=== PATIENT | male | born 1980 | race Caucasian/White ===

== ENCOUNTER 2017-01-14 20:45 | Emergency (ER) | payer OTHER ==
[~2017-01-14] VITALS: Ht 182.9 cm; Wt 8.2 kg
[2017-01-14 20:46] VITALS: BP 153/104; RESP 16; O2SAT 99
[2017-01-14 21:40] LABS: BASOPHILS % (AUTO) 0.6 % (0-3); EOSINOPHILS % (AUTO) 2.9 % (0-5); MONOCYTES % (AUTO) 8.9 % (4-12); Mean Corpuscular Hemoglobin 30.1 pg (27.0-35.0); Mean Corpuscular Volume 85.6 fL (81-100); NEUTROPHILS % (AUTO) 51.7 % (40-74); Platelet Count 244 bil/L (150-400)
[2017-01-14 22:01] LABS: TROPONIN T 0.01 ug/L (0.0-0.011)
[2017-01-14 22:13] LABS: Magnesium 2.2 mg/dL (1.6-2.6)
--- NOTE | 2017-01-14 23:51 | ED.REPORT ---
HPI-Chest Pain Under 40 Date of Service January 14, 2017 ED Provider: Gordy Turner MD Pt is a 36 y.o. male with a hx of HTN who presents to the ED c/o stabbing chest pain onset 2 days ago. Pt states that he had chest pain two days ago that caused him to double over in pain lasting 30 seconds and now he has intermittent mild chest pain. He denies cough, nausea, vomiting, and diaphoresis. Nursing Notes Stated Complaint: CHEST PAIN Chief Complaint: Chest Pain Nursing Notes Reviewed: Yes Allergies: Coded Allergies: No Known Allergies (Unverified Allergy, Unknown, 01/14/17) Scheduled Diltiazem ER (Diltiazem ER) 120 Mg Cap.er.24h 120 MG PO DAILY General Time Seen by MD: 23:51 Chief Complaint Chest pain Hx Obtained From: Patient Arrived By: Walk-in Sudden in Onset?: Yes Onset Occurred: 2 days ago Symptom Duration: Intermittent Location: : Substernal Quality: Painful, Stabbing Severity: Current: Mild Severity: Maximum: Severe Past Medical History Past Medical History Reports: Hypertension Past Surgical History None reported Smoking History Never Smoker Social History Drug Use: Denies drug use Ambulatory Status Independent Review of Systems Respiratory: Denies: Non-productive cough Cardiovascular: Reports: Chest pain GI: Denies: Nausea, Vomiting Skin: Denies Diaphoresis Complete sys rev & neg: except as marked. Physical Exam Initial Vital Signs Vital Signs (First) Date Time Temp Pulse Resp B/P Pulse Ox O2 Delivery O2 Flow Rate FiO2 01/14/17 20:46 37.1 16 153/104 99 Initial VS: Reviewed Head / Eyes: Atraumatic, Normocephalic Extremities: Vascular intact, Neuro intact Skin: Warm, Dry, No cyanosis Neurologic: Alert, Oriented, Nonfocal Psychiatric: Mood/affect normal, Behavior normal, Normal thought content General/Constitutional: Awake, Alert, No acute distress, Well appearing, Well developed, Well hydrated, Well nourished, Not toxic appearing Respiratory / Chest: Atraumatic, Breath sounds NL, Breath sounds = bilat, No respiratory distress Cardiovascular: Heart rate NL, Regular rhythm, Heart sounds NL, Peripheral circulation NL Abdomen: Atraumatic, Soft, Non-tender, No distention Interpretation & Diagnostics Lab Results Interpretation Result Diagram: 01/14/17213201/14/172132 Test 01/14/17 21:33 01/14/17 23:43 White Blood Count 8.1th/mm3 (3.8-10.1) Red Blood Count 5.01mil/mm3 (4.40-5.80) Hemoglobin 15.1g/dL (13.8-17.2) Hematocrit 42.9% (41.0-50.0) Mean Corpuscular Volume 85.6fL (81-100) Mean Corpuscular Hemoglobin 30.1pg (27.0-35.0) Mean Corpuscular Hemoglobin Concent 35.2% (32.0-37.0) Red Cell Distribution Width 12.4% (12.3-15.4) Platelet Count 244bil/L (150-400) Neutrophils (%) (Auto) 51.7% (40-74) Lymphocytes (%) (Auto) 35.8% (14-46) Monocytes (%) (Auto) 8.9% (4-12) Eosinophils (%) (Auto) 2.9% (0-5) Basophils (%) (Auto) 0.6% (0-3) Sodium Level 140mEq/L (134-144) Potassium Level 3.9mEq/L (3.5-5.2) Chloride Level 99mEq/L (97-108) Carbon Dioxide Level 24mmol/L (18-29) Blood Urea Nitrogen 20mg/dL (6-20) Creatinine 1.12mg/dL (0.76-1.27) Estimat Glomerular Filtration Rate 80mL/min (>59) Glucose Level 100mg/dL (60-99) Calcium Level 9.7mg/dL (8.5-10.1) Magnesium Level 2.2mg/dL (1.6-2.6) Total Bilirubin 0.4mg/dL (0.0-1.2) Aspartate Amino Transf (AST/SGOT) 26U/L (0-50) Alanine Aminotransferase (ALT/SGPT) 46U/L (0-44) Alkaline Phosphatase 106U/L (25-150) Total Protein 7.1g/dL (6.4-8.4) Albumin 4.8g/dL (3.4-5.0) Hold [place] Top Tube Received (Received) Troponin T 0.010ug/L (0.0-0.011) ECG Interpretation ECG Interpretation: LVH Q-wave in lead 3 Time: 23:08 Interpreted by: ED physician Normal ECG Interpretation: Normal rate (83), Normal sinus rhythm, No change from prior ECGs (06/02/14) X-Ray Chest Interpretation Chest Xray Interpretation: IMPRESSION: Blunting at both angles. No acute cardiopulmonary disease. Interpretation / Wet Read by: Wet read ED physician Re-Eval/Medical Decision Med Decision/Clinical Course The referral hypertension presents with intermittent sharp brief chest pains in the left chest. He refers wheezes heart attacks. However, he does not have any pressure pain, there are narrowed prolonged, there elicited by palpation, and he is now risk factors beyond hypertension for coronary disease. He does use chewing tobacco but is nonsmoker. His EKG has an inferior Q and three with small Q's elsewhere are more suggestive of hypertensive changes. He has been uncooperative with his meds generally, because of issues with the OT urine tests and "dilute" results, raising questions about his attempts to [place] testing. His enzymes are negative here. It is unlikely that he had an event three days ago with negative enzymes now, and repeat enzymes are again negative. This is fairly clearly a chest wall problem and not a cardiac problem, although he needs to be on antihypertensives. He was offered a start of one of several potential meds, after discussing various possible side effects. He had had some cough and difficulties with lisinopril in the past. He does not want a diuretic. He is fairly physically active and would prefer not to have a beta leona. Calcium channel leona was ultimately selected as the likeliest success, and he does not want fluid retention, so amlodipine and other dihydropyridine class drugs were avoided, and diltiazem selected. He is referred to Dr. Romero for follow-up in the office. Discharged in stable condition. Source of Hx: Old records Re-Evaluation/Progress : Time of Eval: 23:59 Re-Evaluation/Progress Note: Discussed lab and imaging results with pt. Counseled Regarding: Diagnosis, Lab results, Need for follow-up, When/why to return to ED Discharge & Departure Shift Change Sign-Out Response to Therapy: Improved Primary Impression: Non-cardiac chest pain Additional Impression: Hypertension Disposition: Home Discharge Condition All VS Reviewed: Yes Condition: Improved Patient Instructions: Chest Pain (ED), Chest Wall Pain (ED), Chronic Hypertension (ED) Additional Instructions: You were seen here today for chest pain. Your imaging, lab work, and EKG was reassuring and you did not have a heart attack. I recommend you follow-up with a primary care provider regarding your hypertension. Begin diltiazem one tablet daily. Ibuprofen or Aleve for the immediate discomfort. Once you establish with your doctor, a stress test and echocardiogram are advised. Return if any immediate changes in her symptoms, particularly difficulty breathing or other new issues. Stop using nicotine in any form. Referrals: NOPCP (PCP) Johana Romero MD [facility] Attestation Portions of this note were transcribed by Romi Fletcher. I, Dr. Turner personally performed the history, physical exam and medical decision-making; I reviewed and confirmed the accuracy of the information in the transcribed note. Signed by: Malgorzata May, 01/15/17 and 0023. copies to: Johana Romero MD; [facility] Gordy Turner MD January 14, 2017 23:51 ROMI FLETCHER January 14, 2017 23:59
[2017-01-15] MEDS ORDERED: DILT-17 PO (00:16)
[2017-01-15] MEDS ORDERED: Diltiazem CD 120 mg ER24 Capsule PO ONE (00:20)
--- NOTE | 2017-01-15 09:27 | DRSVH ---
PROCEDURE: X-RAY CHEST ONE VIEW, PORTABLE ([id number]) INDICATIONS: chest pain TECHNIQUE: One view of the chest was acquired. COMPARISON: None. FINDINGS: Surgical changes and devices: None. Lungs and pleura: No pleural effusions or pneumothorax. Lungs are clear. Mediastinum: Mediastinal contours appear normal. Heart size is normal. Bones and chest wall: No suspicious bony lesions. Overlying soft tissues appear unremarkable. IMPRESSION: No acute pulmonary process. Dictated by: Harper Crawley M.D. on 01/15/2017 at 9:25 Approved by: Harper Crawley M.D. on 01/15/2017 at 9:25
== END 2017-01-15 01:10 | disposition home or self-care (01) ==
LOC: SED 20:45
DX: R07.89 Other chest pain (principal); I10 Essential (primary) hypertension